=== PATIENT | male | born 1960 | race Native Hawaiian/Other Pacific Islander ===

== ENCOUNTER 2016-08-14 18:10 | Emergency (ER) | payer OTHER ==
[~2016-08-14] VITALS: Ht 182.9 cm; Wt 64.9 kg
[2016-08-14] MEDS ORDERED: CETI10TA PO (18:49)
[2016-08-14] MEDS ORDERED: AMOX875T8 PO (18:49)
== END 2016-08-14 19:11 | disposition home or self-care (01) ==
LOC: ED 18:10
DX: H66.93 Otitis media, unspecified, bilateral (principal); I10 Essential (primary) hypertension
CPT/HCPCS: 99282

== ENCOUNTER 2018-12-02 10:46 | Outpatient (CLI) | payer OTHER ==
[~2018-12-02 10:46] MED LIST: AMOX875T8 PO; CETI10TA PO
== END 2018-12-02 21:03 | disposition home or self-care (01) ==
LOC: LAB 10:46
DX: E80.1 Porphyria cutanea tarda (principal)
CPT/HCPCS: 84120